=== PATIENT | female | born 1990 | race Caucasian/White ===

== ENCOUNTER 2016-11-15 16:31 | Emergency (ER) | payer OTHER | END 2016-11-15 19:58 | disposition home or self-care (01) | LOC: ER 16:31 | DX: M25.511 Pain in right shoulder (principal); R51 Headache; H53.149 Visual discomfort, unspecified; F17.210 Nicotine dependence, cigarettes, uncomplicated; Z90.49 Acquired absence of other specified parts of digestive tract; V49.50XA Passenger injured in collision with unspecified motor vehicles in traffic accident, initial encounter | CPT/HCPCS: 96374; 96375; J1100; J1200; J1885; J2765 ==